=== PATIENT | female | born 1965 | race Caucasian/White ===

== ENCOUNTER 2020-09-12 20:59 | Emergency (ER) | payer OTHER ==
[~2020-09-12] VITALS: Ht 160 cm; Wt 78.1 kg
--- NOTE | 2020-09-12 21:31 | PHYS DOC ---
Past Medical History Past Medical History: Anxiety, Hypertension Past Surgical History: Cholecystectomy, , Hysterectomy, Tonsillectomy Smoking Status: Current Every Day Smoker Additional Information: 2-1 ppd Alcohol Use: None General Adult EDM: Chief Complaint: LOWER BACK PAIN OR INJURY HPI: HPI: 55 yo F has medical history of COPD/tobacco dependence and anxiety, presents to the ED with complaints of nonradiating bilateral sharp upper chest and back pain "like a pulled muscle," that started Thursday morning. Patient reports she was lifting heavy boxes at work that were approximately 40 to 100 pounds on Thursday night (works at [employer] and had problems with the [employer] machine-had to move boxes out of the way). Patient states that she coughs or takes a deep breath it exacerbates her pain, is trying to take small breaths. Pain is also worsening with any twisting movements of the torso. Last bowel movement was 4 days ago "I need something for this." History of cocaine use "years ago," none in past 24 hours. Denies any daily alcohol or drug use. 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 Patient states she received opioid medication from friends. No history of CAD, arrhythmia, syncope. No family history of sudden under the age of 50, CAD, arrhythmia , tissue disorder, aortic disease or coagulopathy. Review of Systems: Review of Systems: Constitutional: Denies fever or chills. [] Eyes: Denies change in visual acuity. [] HENT: Denies nasal congestion or sore throat. [] Respiratory: Denies cough or shortness of breath. [] Cardiovascular: Denies syncope or edema. [] GI: Denies abdominal pain, nausea, vomiting, bloody stools or diarrhea. [] : Denies dysuria or hematuria Musculoskeletal: Denies joint pain or swelling Integument: Denies rash or crepitus Neurologic: Denies headache, neck stiffness, saddle anesthesia, urinary or bowel retention or incontinence, focal weakness or sensory changes. [] Endocrine: Denies polyuria or polydipsia. [] Lymphatic: Denies swollen glands. [] Psychiatric: Denies depression or anxiety. [] Heart Score: HEART Score for Chest Pain: HEART Score for Chest Pain Response (Comments) Value History Slighlty/Non-Suspicious 0 ECG Normal 0 Age >45 - < 65 1 Risk Factors 1 or 2 Risk Factors 1 Troponin < Normal Limit 0 Total 2 Risk Factors: Risk Factors: DM, Current or recent (<one month) smoker, HTN, HLP, family history of CAD, obesity. Risk Scores: Score 0 - 3: 2.5% MACE over next 6 weeks - Discharge Home Score 4 - 6: 20.3% MACE over next 6 weeks - Admit for Clinical Observation Score 7 - 10: 72.7% MACE over next 6 weeks - Early Invasive Strategies Allergies: Allergies: Allergies Coded Allergies Type Severity Reaction Last Updated Verified No Known Drug Allergies 09/12/20 No Physical Exam: PE: Constitutional: Well developed, in pain when turning over/sitting up, appears to truly be in pain although there is some drama component with it-pain level not consistent with msk pain HENT: Normocephalic, atraumatic, Eyes: EOMI, conjunctiva normal, no discharge. Neck: Normal range of motion, supple, Cardiovascular: S1/2 present, regular rhythm Lungs & Thorax: Speaking in full sentences, bilateral equal chest rise, no tachypnea or increased work of breathing Abdomen: soft, no tenderness, Skin: Warm, dry, no erythema, no rash. [] Back: No midline step off, pain is diffuse in thoracic and cervical regions, does report back pain in mid-thoracic region, Extremities: No tenderness, no cyanosis, no edema Neurologic: Alert and oriented X 3, normal motor function, normal sensory function, no focal deficits noted. [] Psychologic: Affect normal, judgement normal, mood normal. [] Current Patient Data: Vital Signs: Vital Signs Date Time Temp Pulse Resp B/P (MAP) Pulse Ox O2 Delivery O2 Flow Rate FiO2 09/12/20 21:12 98.9 109 24 131/84 (100) 98 Room Air 98.9 EKG: EKG: Sinus tachycardia at 106 bpm, no axis deviation, normal intervals, no T wave inversions, no ST elevations or ST depressions Radiology/Procedures: Radiology/Procedures: []IMAGING REPORT Signed PATIENT: FLIP GARCIA ACCOUNT: [id number] : 1965 LOCATION: ER AGE: 55 SEX: F EXAM STATUS: REG ER ORD. PHYSICIAN: CHRISTOPHER ABBASI DO REASON: cp PROCEDURE: PORTABLE CHEST 1V Exam: Chest one view INDICATION: Chest pain TECHNIQUE: Frontal view of the chest Comparisons: None FINDINGS: The cardiomediastinal silhouette and pulmonary vessels are within normal limits. The lung and pleural spaces are clear. IMPRESSION: No acute cardiopulmonary process. Electronically signed by: Naye Goncalves MD (09/12/2020 10:32 PM) [facility] DICTATED and SIGNED BY: NAYE GONCALVES MD DATE: 09/12/20 [id number] 0 IMAGING REPORT Signed PATIENT: FLIP GARCIA ACCOUNT: [id number] : 1965 LOCATION: ER AGE: 55 SEX: F EXAM STATUS: REG ER ORD. PHYSICIAN: CHRISTOPHER ABBASI DO REASON: chest and back pain, r/o dissection/PE, elevated d dimer PROCEDURE: CT ANGIO CHEST ABD PELVIS CTA chest abdomen pelvis with contrast dated 09/12/2020. No comparison available. CLINICAL INDICATION: Chest and back pain. Evaluate for dissection. TECHNIQUE: Contiguous axial imaging of the chest abdomen pelvis performed following with and without intravenous administration of 100 cc Omnipaque 350. Study was performed as dedicated CTA with thin cut coronal MIPS 3-D reconstruction. One or more of the following individualized dose reduction techniques were utilized for this examination: 1. Automated exposure control 2. Adjustment of the mA and/or kV according to patient size 3. Use of iterative reconstruction technique FINDINGS: Contrast bolus is adequate. Thoracic aorta is normal in caliber. No intimal flap or periaortic fluid collection. Heart size within normal limits. No pericardial effusion. No mediastinal, hilar or axillary lymphadenopathy. Thyroid gland is unremarkable. There is some soft tissue edema anterior to the thoracic spine near the T5-T6 level with possible subtle erosive changes of the anterior endplates. There is also moderate multilevel disc space narrowing and endplate hypertrophic changes at the mid to lower thoracic disc levels, particularly at T5-T6 and T6-T7. Central airways are patent. Patchy groundglass and linear opacity at the dependent lung bases, likely atelectasis. Lungs are otherwise clear. No consolidation or pleural effusion. There is mild emphysema. Abdominal aorta normal in caliber. No intimal flap or aneurysm. No periaortic fluid collection. Celiac artery, SMA and bilateral renal arteries are patent. Iliac arteries are patent. Liver and spleen are homogeneous. No biliary ductal dilatation. Gallbladder surgically absent. Pancreas, adrenal glands and kidneys are unremarkable. No hydronephrosis. Low- density focus at the upper pole left kidney, most consistent with cysts. Unopacified GI tract normal in caliber and contour. No focal bowel wall thickening. No inflammatory stranding in the mesentery. No ascites or lymphadenopathy. Appendix normal in caliber. Images the pelvis show nondistended urinary bladder. Uterus is surgically absent. No free fluid or pelvic lymphadenopathy. Bone windows otherwise show no significant abnormality. Multilevel spondylosis. Small sclerotic focus at the proximal femoral metaphysis on the left, nonspecific. Small partially calcified disc protrusion at T7-T8 resulting in mild narrowing of the central canal. IMPRESSION: 1. No evidence of aortic dissection or aneurysm. 2. There is some focal soft tissue edema along the anterior aspect of the thoracic spine near the T5-T6 and T6-T7 levels of uncertain etiology. Although this could be related to reactive edema from strain injury or spondylosis, underlying discitis/osteomyelitis cannot be excluded. Correlate clinically. If indicated, MRI with and without contrast and better evaluate. 3. Clear lungs. 4. Normal appendix. 5. Status post cholecystectomy and hysterectomy. Electronically signed by: Boogie Rosa MD (09/12/2020 11:10 PM) [facility] [place] SIGNED BY: BOOGIE ROSA MD DATE: 09/12/20 [id number] 0 Course & Med Decision Making: Course & Med Decision Making Pertinent Labs and Imaging studies reviewed. (See chart for details) Concern for intractable, pain out of proportion to physical exam, chest and back pain, 2 troponins negative, EKG with no ST elevations. CTA of the chest is concerning for edema around T5-7 which was patient's location of pain on physical exam. DDx- strain injury or spondylosis, underlying discitis/osteomyelitis cannot be excluded. Patient persistently tachycardic in the ED, drug screen positive for meth/amp. Patient's pain not improved with Valium, Dilaudid, Tylenol or Toradol. I did recommend admission for further medical management, to consider MRI. Patient has no neurologic findings, no upper extremity weakness or sensory deficits. No recent back surgeries or epidurals. Does report a history of bowel infection and bacteremia. Patient is tachycardic and tachypneic with elevated CRP. Patient afebrile with no leukocytosis. Osteomyelitis is on ddx. Patient refusing to be admitted because "I don't have clothes," and wants to come back tomorrow in the morning. Has no primary care physician for outpatient follow-up. Pt has [facility] and refuses my recommendations. Life/limb-threatening differential includes but is not limited to, aortic dissection/aneurysm, cauda equina syndrome, transverse myelitis, spinal cord/epidural compression syndromes, discitis, spinal stenosis, epidural abscess or hematoma, osteomyelitis, disc herniation, surgical abdomen, stable or unstable fracture, renal/ureteral colic, sepsis, meningitis, musculoskeletal injury, traumatic injury, intraabdominal/retroperitoneal or pelvic bleeding, acute myocardial infarction, congestive heart failure, arrhythmia, cardiomyopathy, myocarditis, pericarditis, peptic ulcer disease, pneumomediastinum, pneumonia, pneumothorax, pulmonary embolus, unstable angina, rib fracture, contusion, pericardial tamponade or effusion, or pulmonary contusion. The patient has decided to leave our facility against medical advice. I have assessed patient's ability to make informed decision and feel the patient has the capacity to comprehend information regarding the current medical condition and appreciates the impact of the disease or condition and the consequences of various options for treatment, including foregoing treatment. The patient possesses the ability to evaluate all treatment options, comparing the risks and benefits of each option, communicate his or her choice in a consistent manner over time, and is able to make rational choices. I explained to the patient further testing, treatment, and evaluation I would like to perform in the emergency department visit as well as any possible alternatives that can be accomplished in a timely manner. I have outlined the possible risks of fore going any or all of these interventions and the patient understands and acknowledges that the decision to leave may result in undesirable consequences such as , permanent disability, and/or loss of current lifestyle. Even though leaving AMA is not ideal, I have instructed the patient to follow any discharge instructions given, take any medications prescribed, and resume care as soon as possible with another provider. This conversation was witnessed by another member of the emergency department staff and we clearly communicated the patient is welcome to return anytime to continue care at our facility. Peg Disclaimer: Dragon Disclaimer: This electronic medical record was generated, in whole or in part, using a voice recognition dictation system. Departure Departure Impression: Primary Impression: Intractable back pain Additional Impression: Chest pain Disposition: 07 AMA/ELOPED/LWBS Condition: STABLE Referrals: NO PCP (PCP) FOLLOW UP WITH FAMILY MEDICINE: Family Medicine Address: [address] [facility] [place] [address] Patient Instructions: Back Pain, Adult, Chest Pain (Nonspecific), Discharge Against Medical Advice Additional Instructions: FOLLOW UP WITH ORTHOPEDICS: Orthopaedic Sports Medicine Orthopaedic Surgery [facility] Address: [address], [address] [place] [address] EMERGENCY DEPARTMENT GENERAL DISCHARGE INSTRUCTIONS Thank you for coming to [facility] Emergency Department (ED) today and trusting us with you care. We trust that you had a positive experience in our Emergency Department. If you wish to speak to the department management, you may call the Director at [phone]. YOUR FOLLOW UP INSTRUCTIONS ARE FOLLOWS: 1. Do you have a private Doctor? If you do not have a private doctor, please ask for a resource list of physicians or clinics that may be able to assist you with follow up care. 2. The Emergency Physicain has interpreted your x-rays. The X-Ray specialist will also review them. If there is a change in the findings, you will be notified in 48 hours when at all possible. 3. A lab test or culture has been done, your results will be reviewed and you will be notified if you need a change in treatment. ADDITIONAL INSTRUCTIONS AND INFORMATION: 1. Your care today has been supervised by a physician who is specially trained in emergency care. Many problems require more than one evaluation for a complete diagnosis and treatment. We recommend that you schedule your follow up appointment as recommended to ensure complete treatment of you illness or injury. If you are unable to obtain follow up care and continue to have a problem, or if your condition worsens, we recommend that you return to the ED. 2. We are not able to safely determine your condition over the phone nor are we able to give sound medical advice over the phone. For these safety reasons, if you call for medical advice we will ask you to come to the ED for further evaluation. 3. If you have any questions regarding these discharge instructions please call the ED at [phone]. SAFETY INFORMATION: In the interest of safety, wellness, and injury prevention; we encourage you to wear your sealbelt, if you smoke; quite smoking, and we encourage family to use a protective helmet for bicycling and other sporting events that present an increased risk for head injury. IF YOUR SYMPTOMS WORSEN OR NEW SYMPTOMS DEVELOP, OR YOU HAVE CONCERNS ABOUT YOUR CONDITION; OR IF YOUR CONDITION WORSENS WHILE YOU ARE WAITING FOR YOUR FOLLOW UP APPOINTMENT; EITHER CONTACT YOUR PRIMARY CARE DOCTOR, THE PHYSICIAN WHOSE NAME AND NUMBER YOU WERE GIVEN, OR RETURN TO THE ED IMMEDIATELY. Scripts Methocarbamol (ROBAXIN-750) 750 Mg Tablet 1 TAB PO TID PRN for PAIN for 10 Days, #30 TAB 0 Refills Prov: CHRISTOPHER ABBASI DO 09/13/20 CHRISTOPHER ABBASI DO Sep 12, 2020 21:31
[2020-09-12 22:00] LABS: BASO % 1 % (0-3); EOS # 0.2 x10^3/uL (0.0-0.7); EOS % 2 % (0-3); HEMATOCRIT 37.3 % (36.0-47.0); HEMOGLOBIN 13.3 g/dL (12.0-15.5); LYMPH # 2.3 x10^3/uL (1.0-4.8); LYMPH % 25 % (24-48); MEAN CORPUSCULAR HEMOGLOBIN 32 pg (25-35); MEAN CORPUSCULAR HGB CONC 36 g/dL (31-37); MEAN CORPUSCULAR VOLUME 90 fL (79-100); MONO # 0.6 x10^3/uL (0.0-1.1); MONO % 7 % (0-9); NEUT # 5.8 x10^3/uL (1.8-7.7); NEUT % 65 % (31-73); PLATELET COUNT 269 x10^3/uL (140-400); RED BLOOD COUNT 4.17 x10^6/uL (3.50-5.40); RED CELL DISTRIBUTION WIDTH 12.5 % (11.5-14.5); WHITE BLOOD COUNT 8.9 x10^3/uL (4.0-11.0)
[2020-09-12 22:08] LABS: CALCIUM 9.2 mg/dL (8.5-10.1); CREATININE 0.8 mg/dL (0.6-1.0); GFR 74.7; POTASSIUM 4.1 mmol/L (3.5-5.1)
[2020-09-12 22:13] LABS: ALBUMIN 3.2 g/dL (3.4-5.0); ALBUMIN/GLOBULIN RATIO 0.7 (1.0-1.7); MAGNESIUM 2.1 mg/dL (1.8-2.4); TOTAL BILIRUBIN 0.3 mg/dL (0.2-1.0); TOTAL PROTEIN 7.6 g/dL (6.4-8.2)
[2020-09-12] MEDS ORDERED: diazePAM 5 MG TABLET PO ONE (22:15)
--- NOTE | 2020-09-12 22:35 | RAD ---
Exam: Chest one view INDICATION: Chest pain TECHNIQUE: Frontal view of the chest Comparisons: None FINDINGS: The cardiomediastinal silhouette and pulmonary vessels are within normal limits. The lung and pleural spaces are clear. IMPRESSION: No acute cardiopulmonary process. Electronically signed by: Naye Obando MD (09/12/2020 10:32 PM) [facility]
[2020-09-12 22:45] VITALS: BP 139/86
[2020-09-12] MEDS ORDERED: CONTRAST GIVEN. MC PRN (22:45)
[2020-09-12] MEDS ORDERED: HYDROmorphone 2 MG/ML VIAL IVP ONE (22:45)
[2020-09-12] MEDS ORDERED: IOHEXOL 350 MG/ML 100 ML VIAL. IV ONE (22:45)
[2020-09-12] MEDS ORDERED: IV NORMAL SALINE 1000ML BAG 1,000 ML IV ONE (22:45)
--- NOTE | 2020-09-12 23:13 | RAD ---
CTA chest abdomen pelvis with contrast dated 09/12/2020. No comparison available. CLINICAL INDICATION: Chest and back pain. Evaluate for dissection. TECHNIQUE: Contiguous axial imaging of the chest abdomen pelvis performed following with and without intravenous administration of 100 cc Omnipaque 350. Study was performed as dedicated CTA with thin cut coronal M IPS 3-D reconstruction. One or more of the following individualized dose reduction techniques were utilized for this examinat ion: 1. Automated exposure control 2. Adjustment of the mA and/or kV according to patient size 3. Use of iterative reconstruction technique FINDINGS: Contrast bolus is adequate. Thoracic aorta is normal in caliber. No intimal flap or periaortic fluid collection. Heart size within normal limits. No pericardial effusion. No mediastinal, hilar or axilla ry lymphadenopathy. Thyroid gland is unremarkable. There is some soft tissue edema anterior to the thoracic spine near the T5-T6 level with possible sub tle erosive changes of the anterior endplates. There is also moderate multilevel disc space narrowing and endplate hypertrophic changes at the mid to lower thoracic disc levels, particularly at T5-T6 an d T6-T7. Central airways are patent. Patchy groundglass and linear opacity at the dependent lung bases, likely atelectasis. Lungs are otherwise clear. No consolidation or pleural effusion. There is mild emphysem a. Abdominal aorta normal in caliber. No intimal flap or aneurysm. No periaortic fluid collection. Davida c artery, SMA and bilateral renal arteries are patent. Iliac arteries are patent. Liver and spleen are homogeneous. No biliary ductal dilatation. Gallbladder surgically absent. Pancreas, adrenal glands and kidneys are unremarkable. No hydronephrosis. Low-density focus at the up per pole left kidney, most consistent with cysts. Unopacified GI tract normal in caliber and contour. No focal bowel wall thickening. No inflammatory s tranding in the mesentery. No ascites or lymphadenopathy. Appendix normal in caliber. Images the pelvis show nondistended urinary bladder. Uterus is surgically absent. No free fluid or pe lvic lymphadenopathy. Bone windows otherwise show no significant abnormality. Multilevel spondylosis. Small sclerotic focus at the proximal femoral metaphysis on the left, nonspecific. Small partially calcified disc protrusi on at T7-T8 resulting in mild narrowing of the central canal. IMPRESSION: 1. No evidence of aortic dissection or aneurysm. 2. There is some focal soft tissue edema along the anterior aspect of the thoracic spine near the T5- T6 and T6-T7 levels of uncertain etiology. Although this could be related to reactive edema from stra in injury or spondylosis, underlying discitis/osteomyelitis cannot be excluded. Correlate clinically. If indicated, MRI with and without contrast and better evaluate. 3. Clear lungs. 4. Normal appendix. 5. Status post cholecystectomy and hysterectomy. Electronically signed by: Boogie Rosa MD (09/12/2020 11:10 PM) [facility]
[2020-09-13] LABS: BARBITURATES NEG (NEG); BENZODIAZEPINES NEG (NEG); CANNABINOIDS NEG (NEG); COCAINE NEG (NEG); METHADONE NEG (NEG); OPIATES POS (NEG); PHENCYCLIDINE NEG (NEG)
[2020-09-13 00:01] LABS: AMPHETAMINE/METHAMPHETAMINE POS (NEG)
[2020-09-13] MEDS ORDERED: KETOROLAC 15 MG/ML VIAL. IVP ONE (01:30)
[2020-09-13] MEDS ORDERED: ACETAMINOPHEN 500 MG TABLET PO ONE (01:30)
[2020-09-13 02:09] LABS: C-REACTIVE PROTEIN 149.5 mg/L (0-3.3)
[2020-09-13] MEDS ORDERED: METH-38 PO (02:21)
[2020-09-13 02:56] LABS: BILIRUBIN,URINE NEGATIVE (NEG); CLARITY,URINE CLEAR; COLOR,URINE YELLOW; NITRITE,URINE POSITIVE (NEG); PH,URINE 5.5 (<5.0-8.0); PROTEIN,URINE NEGATIVE (NEG-TRACE); UROBILINOGEN,URINE 0.2 mg/dL (0.2 mg/dL)
[2020-09-13 03:00] LABS: BACTERIA,URINE MANY /HPF (0-FEW); RBC,URINE OCC /HPF (0-2); WBC,URINE TNTC /HPF (0-4)
== END 2020-09-13 02:48 | disposition left against medical advice (07) ==
LOC: ER 20:59
DX: M54.6 Pain in thoracic spine (principal); R07.89 Other chest pain; R05 Cough; F41.9 Anxiety disorder, unspecified; I10 Essential (primary) hypertension; F17.200 Nicotine dependence, unspecified, uncomplicated; Z90.49 Acquired absence of other specified parts of digestive tract; Z90.710 Acquired absence of both cervix and uterus; Z90.89 Acquired absence of other organs; Z98.890 Other specified postprocedural states
CPT/HCPCS: 36415; 71045; 71275; 74174; 80053; 80307; 81001; 83690; 83735; 84484; 85025; 85379; 86140; 87086; 93005; 96361; 96374; 96375; 99285; J1170; J1885; J7030; Q9967; 86141; 87077; 87186